=== PATIENT | male | born 1960 | race Caucasian/White ===

== ENCOUNTER → 2017-05-21 | Day surgery (SDC) | payer OTHER ==
[~2017-05-21] MED LIST: BUPIVACAINE HCL PF 0.75% 30 ML VIAL ONE; LACTATED RINGER'S 1000 ML INJ 1,000 ML ONE; MIDAZOLAM HCL 5 MG/ML VIAL (1 ML) ONE; ONDANSETRON HCL 4 MG/2 ML VIAL IV PUSH ONE; PROPOFOL 200 MG/20 ML AMP IV ONE; ceFAZolin 2 GM PREMIX 50 ML ONE
--- NOTE | 2017-05-21 11:51 | MP ---
cc: ROSS BALL M.D. DATE OF SURGERY 05/21/2017 PREOPERATIVE DIAGNOSIS Left shoulder rotator cuff tear, left shoulder impingement syndrome, left shoulder SLAP labral tear. POSTOPERATIVE DIAGNOSES Left shoulder rotator cuff tear, left shoulder impingement syndrome, left shoulder SLAP labral tear. PROCEDURE Left shoulder arthroscopic rotator cuff repair, left shoulder arthroscopic subacromial decompression, left shoulder arthroscopic extensive debridement of labral tear. SURGEON Dr. Ross Ball RUG SIZER PADMINI Tyler ANESTHESIA General with an anterior interscalene block. ESTIMATED BLOOD LOSS Less than 10 cc COMPLICATIONS None IMPLANTS USED Arthrex JUSTIFICATION This patient is a 56-year male who injured his left shoulder. He has had persistent pain and weakness in regards to his condition. He has failed conservative treatment. Clinical exam, as well as MRI confirmed the above-named findings. The patient counseled as to the risks, benefits and alternatives to the above-named proposed surgical procedure. He did wish to proceed with surgery. PROCEDURE IN DETAIL A written consent was obtained. The patient identified by name. A scalene block anesthesia was administered to the left upper extremity by the anesthesiologist. The patient was taken to the or and general anesthesia was administered as well as two grams of IV Ancef. The patient carefully turned to a right lateral decubitus position. A lateral arm roll was placed. All bony prominences and pressure points were well padded. The patient's neck was carefully monitored and kept neutral. An arthroscopic arm rosenbaum was gently applied to the left upper extremity. 10 pounds of traction placed. The left shoulder prepped and draped using as Isopropyl alcohol, Hibiclens solution and DuraPrep solution. After time-out was performed, a standard posterior and anterior glenohumeral arthroscopic portal was established. The glenohumeral joint revealed evidence of extensive labral tearing on the anterior, superior and posterior portions. An arthroscopic shaver was introduced through the anterior portal and extensive debridement of the labrum was performed to include the anterior 3 o'clock position, the superior 12 o'clock position and back down to the posterior 9 o'clock position. The shaver was also used to perform a chondroplasty along a portion of the glenohumeral joint which required debridement. There is evidence of a large rotator cuff tear involving the supraspinatus and infraspinatus tendons which were visualized arthroscopically. Attention was turned to the subacromial space. An arthroscopic shaver was introduced through the lateral portal. A cervical decompression was performed. The shaver was used for extensive bursectomy. Arthroscopic portal used to performed an acromioplasty and the cautery device was used to release the coracoacromial ligament. There was evidence of a tear of the rotator cuff tendon involving the supraspinatus and infraspinatus tendon which was a medial tear at approximately the level of the glenoid. An Arthrex scorpion device was then used to shuttle #2 FiberTape suture in a horizontal mattress pattern through the torn tendon along with a #2 FiberLink suture. The sutures were then placed through the eyelet of an Arthrex 4.75 mm Bio SwiveLock anchor and the anchor was inserted in the greater tuberosity after appropriate tensioning of sutures. There was good purchase and fixation after insertion of the anchors. At the conclusion of the surgical procedure, the arthroscopic portals were closed with 3-0 Prolene suture. Sterile dressings applied. The patient tolerated the procedure well. No intraoperative complications noted. Tk Snow, Physician Bench Molder Certified was present during the entire procedure to include patient positioning and the procedure itself. The medical necessity of a physician exceptional children teacher assistant was indicated in this case due to the complexity of the procedure. He assisted with appropriate manipulation and also manipulation of the shoulder. He assisted with shuttling of sutures and also implantation suture anchors for purpose of rotator cuff tendon repair. MD MARICARMEN Samaniego/ALECIA /11:19 AM /11:33 AM
== END | disposition home or self-care (01) ==
LOC: ESDC 08:01
PROVIDERS: ATTEND Orthopaedic Surgery Sports Medicine
DX: M75.102 Unspecified rotator cuff tear or rupture of left shoulder, not specified as traumatic (principal); M75.42 Impingement syndrome of left shoulder; S43.432A Superior glenoid labrum lesion of left shoulder, initial encounter
CPT/HCPCS: 01630; 01991; 29823; 29826; 29827; 64417; C1713; J0690; J2250; J2405; J7120